=== PATIENT | male | born 1970 | race Caucasian/White ===

== ENCOUNTER 2018-07-13 07:06 | Emergency (ER) | payer OTHER, BC ==
[2018-07-13] MEDS ORDERED: Ondansetron 4 MG/2 ML SDV IVPUSH ONE (07:24)
[2018-07-13] MEDS ORDERED: Morphine 2 MG/ML Syringe IVPUSH ONE (07:24)
[2018-07-13] MEDS ORDERED: Morphine 2 MG/ML Syringe ONE (07:25)
[2018-07-13] MEDS ORDERED: Ondansetron 4 MG/2 ML SDV ONE (07:25)
--- NOTE | 2018-07-13 07:30 | EDM.PDOC ---
ED HPI GENERAL MEDICAL PROBLEM - General Chief Complaint: Lower Extremity Injury/Pain Stated Complaint: POSSIBLE BROKEN LEFT ANKLE Time Seen by Provider: 07/13/18 07:27 - History of Present Illness INITIAL COMMENTS - FREE TEXT/NARRATIVE: HISTORY AND PHYSICAL: History of present illness: Patient's a 48-year-old white male presents with concern injury to left lower extremity that occurred prior to arrival there is no other trauma or concern. This was blunt force trauma there is no associated laceration. He has pain and swelling to his distal left leg Review of systems: As per history of present illness and below otherwise all systems reviewed and negative. Past medical history: As per history of present illness and as reviewed below otherwise noncontributory. Surgical history: As per history of present illness and as reviewed below otherwise noncontributory. Social history: No reported history of drug or alcohol abuse. Family history: As per history of present illness and as reviewed below otherwise noncontributory. Physical exam: HEENT: Atraumatic, normocephalic, pupils reactive, negative for conjunctival pallor or scleral icterus, mucous membranes moist, throat clear, neck supple, nontender, trachea midline. Lungs: Clear to auscultation, breath sounds equal bilaterally, chest nontender. Heart: S1S2, regular, negative for clicks, rubs, or JVD. Abdomen: Soft, nondistended, nontender. Negative for masses or hepatosplenomegaly. Negative for costovertebral tenderness. Pelvis: Stable nontender. Genitourinary: Deferred. Rectal: Deferred. Extremities: Patient's pain and swelling to the distal third of his left lower extremity neurovascular exam in [facility] is unremarkable Neuro: Awake, alert, oriented. Cranial nerves II through XII unremarkable. Cerebellum unremarkable. Motor and sensory unremarkable throughout. Exam nonfocal. Diagnostics: X-ray left ankle Therapeutics: Posterior mold left lower extremity crutches Impression: #1 acute injury left lower extremity (see fibular shaft fracture) Definitive disposition and diagnosis as appropriate pending reevaluation and review of above. left ankle Pain Score (Numeric/FACES): 7 - Related Data Allergies Allergy/AdvReac Type Severity Reaction Status Date / Time No Known Allergies Allergy Verified 07/13/18 07:09 Home Meds: Home Meds . [No Known Home Meds] 07/13/18 [History] Past Medical History Respiratory History: Reports: Asthma - Infectious Disease History Infectious Disease History: Reports: Chicken Pox Social & Family History - Family History Family Medical History: Noncontributory - Tobacco Use Smoking Status *Q: Never Smoker - Recreational Drug Use Recreational Drug Use: No Review of Systems - Review of Systems Review Of Systems: ROS reveals no pertinent complaints other than HPI. ED EXAM, GENERAL - Physical Exam Exam: See Below (See dictation) Course - Vital Signs Last Recorded V/S: Last Vital Signs Temp 35.9 C 07/13/18 07:09 Pulse 78 07/13/18 07:09 Resp 18 07/13/18 07:09 BP 147/90 H 07/13/18 07:09 Pulse Ox 99 07/13/18 07:09 - Orders/Labs/Meds Orders: Active Orders 24 hr Category Date Time Status Ankle 2V Lt [CR] Stat Exams 07/13/18 07:11 Taken Meds: Medications Discontinued Medications Generic Name Dose Route Start Last Admin Trade Name Freq PRN Reason Stop Dose Admin Morphine Sulfate 2 mg 07/13/18 07:24 Morphine IVPUSH 07/13/18 07:25 ONETIME ONE Ondansetron HCl 4 mg 07/13/18 07:24 Zofran IVPUSH 07/13/18 07:25 ONETIME ONE Departure - Departure Time of Disposition: 07:29 Disposition: Home, Self-Care 01 Condition: Good Clinical Impression: Fibula fracture - Discharge Information Referrals: PCP,None [Primary Care Provider] - Additional Instructions: The following information is given to patients seen in the emergency department who are being discharged to home. This information is to outline your options for follow-up care. We provide all patients seen in our emergency department with a follow-up referral. The need for follow-up, as well as the timing and circumstances, are variable depending upon the specifics of your emergency department visit. If you don't have a primary care physician on staff, we will provide you with a referral. We always advise you to contact your personal physician following an emergency department visit to inform them of the circumstance of the visit and for follow-up with them and/or the need for any referrals to a consulting specialist. The emergency department will also refer you to a specialist when appropriate. This referral assures that you have the opportunity for followup care with a specialist. All of these measure are taken in an effort to provide you with optimal care, which includes your followup. Under all circumstances we always encourage you to contact your private physician who remains a resource for coordinating your care. When calling for followup care, please make the office aware that this follow-up is from your recent emergency room visit. If for any reason you are refused follow-up, please contact the [facility] emergency department at and asked to speak to the emergency department charge nurse. [facility] [address], [address] [place] [address] No weightbearing posterior mold as directed hydrocodone as prescribed crutches as directed follow-up orthopedic surgery above - My Orders Last 24 Hours: My Active Orders 07/13/18 07:11 Ankle 2V Lt [CR] Stat - Assessment/Plan Last 24 Hours: My Active Orders 07/13/18 07:11 Ankle 2V Lt [CR] Stat
--- NOTE | 2018-07-13 07:31 | CR ---
Indication: Injury and pain Technique: Left ankle 2 views Comparison: None Findings/Impression: Bones: Acute minimally displaced and minimally angulated fractures in the distal shaft of the left fibula. No other fracture or malalignment. Joint spaces: Unremarkable. Soft tissues: Moderate soft tissue swelling is medial to the ankle joint. Dictated by Marvin Arenas MD @ Jul 13 2018 7:29AM Signed by Dr. Marvin Arenas @ Jul 13 2018 7:30AM
--- NOTE | 2018-07-13 08:45 | CR ---
Indication: Fracture Technique: Left tibia and fibula 4 views Comparison: July 13, 2018 Findings: Lower leg has been placed in a cast. Oblique fracture in the distal fibula remains minimally displaced. No new abnormality. Dictated by Marvin Arenas MD @ Jul 13 2018 8:41AM Signed by Dr. Marvin Arenas @ Jul 13 2018 8:43AM
== END 2018-07-13 08:28 | disposition home or self-care (01) ==
LOC: MW.ED 07:06
DX: S82.432A Displaced oblique fracture of shaft of left fibula, initial encounter for closed fracture (principal); W00.0XXA Fall on same level due to ice and snow, initial encounter
CPT/HCPCS: 73590; 73600; 96374; 96375; 99283; J2270; J2405

== ENCOUNTER 2018-07-14 06:44 | Day surgery (SDC) | payer BC, OTHER ==
--- NOTE | 2018-07-14 07:06 | PCM.PREANE ---
Preanesthetic Assessment - Anesthesia/Transfusion/Family Hx Anesthesia History: No Prior Anesthesia Other Type of Anesthesia Reaction Comment: states his mother has hard time coming out of anesthesia Family History of Anesthesia Reaction: No Transfusion History: No Prior Transfusion(s) Intubation History: Unknown - Review of Systems General: No Symptoms Pulmonary: No Symptoms Cardiovascular: No Symptoms Gastrointestinal: No Symptoms Neurological: No Symptoms Other: Reports: None - Physical Assessment Height: 1.83 m Weight: 124.738 kg ASA Class: 2 Mental Status: Alert & Oriented x3 Airway Class: Mallampati = 2 Dentition: Reports: Normal Dentition Thyro-Mental Finger Breadths: 3 Mouth Opening Finger Breadths: 2 ROM/Head Extension: Full Lungs: Clear to Auscultation, Normal Respiratory Effort Cardiovascular: Regular Rate, Regular Rhythm - Allergies Allergies/Adverse Reactions: Allergies Allergy/AdvReac Type Severity Reaction Status Date / Time No Known Allergies Allergy Verified 07/13/18 07:09 - Blood Blood Available: No - Anesthesia Plan Pre-Op Medication Ordered: None - Acknowledgements Anesthesia Type Planned: General Anesthesia Pt an Appropriate Candidate for the Planned Anesthesia: Yes Alternatives and Risks of Anesthesia Discussed w Pt/Guardian: Yes Pt/Guardian Understands and Agrees with Anesthesia Plan: Yes PreAnesthesia Questionnaire Respiratory History: Reports: Asthma (very mild), Sleep Apnea Other Respiratory History: uses CPAP, states he seldom uses his inhaler Other Musculoskeletal History: currently has fx left ankle Endocrine/Metabolic History: Reports: Obesity/BMI 30+ - Infectious Disease History Infectious Disease History: Reports: Chicken Pox - Past Surgical History Head Surgeries/Procedures: Reports: None - SUBSTANCE USE Smoking Status *Q: Former Smoker Recreational Drug Use History: No - HOME MEDS Home Medications: Home Meds Albuterol Sulfate [Proair Hfa] 2 puff INH ASDIRECTED PRN 07/13/18 [History] Hydrocodone/Acetaminophen [Hydrocodon-Acetaminophen 5-325] 1 tab PO ASDIRECTED PRN 07/13/18 [History]
[2018-07-14] MEDS ORDERED: Midazolam 1 MG/ML 2 ML SDV ONE (07:10)
[2018-07-14] MEDS ORDERED: Ondansetron 4 MG/2 ML SDV ONE (07:10)
[2018-07-14] MEDS ORDERED: fentaNYL 250 MCG/5 ML SDV ONE (07:11)
[2018-07-14] MEDS ORDERED: Propofol 200 MG/20 ML SDV ONE ×2 (07:12)
[2018-07-14] MEDS ORDERED: Bupivacaine 0.25% 10 ML SDV ONE ×2 (07:18→08:42)
[2018-07-14] MEDS ORDERED: ceFAZolin/Dextrose,Iso-Osmotic 2 GM/50 ML Duplex Bag IV ONE (07:28)
[2018-07-14] MEDS ORDERED: Metoprolol Tartrate 5 MG/5 ML SDV ONE (08:05)
[2018-07-14] MEDS ORDERED: fentaNYL 100 MCG/2 ML SDV IVPUSH PRN (08:23)
[2018-07-14] MEDS ORDERED: Meperidine PF 25 MG/ML Syringe IVPUSH PRN (08:23)
[2018-07-14] MEDS ORDERED: Ondansetron 4 MG/2 ML SDV IVPUSH PRN (08:25)
--- NOTE | 2018-07-14 08:56 | PCM.OPNOTE ---
- General Post-Op/Procedure Note Date of Surgery/Procedure: 07/14/18 Operative Procedure(s): ORIF left ankle lateral malleolus and syndesmosis Pre Op Diagnosis: left ankle lateral malleolus fracture with syndesmosis dysruption Post-Op Diagnosis: same Anesthesia Technique: General LMA Primary Surgeon: Jamaal SWEENEY in mLs: 10 Complications: none Condition: Good
[2018-07-14] MEDS ORDERED: Acetaminophen/HYDROcodone 325-7.5 MG Tab PO PRN (08:57)
[2018-07-14] MEDS ORDERED: fentaNYL 100 MCG/2 ML SDV ONE (09:02)
--- NOTE | 2018-07-14 09:21 | PCM.POSTAN ---
POST ANESTHESIA ASSESSMENT - MENTAL STATUS Mental Status: Alert, Oriented - RESPIRATORY Respiratory Status: Respiratory Rate WNL, Airway Patent, O2 Saturation Stable - CARDIOVASCULAR CV Status: Pulse Rate WNL, Blood Pressure Stable - GASTROINTESTINAL GI Status: No Symptoms - POST OP HYDRATION Hydration Status: Adequate & Stable
--- NOTE | 2018-07-14 10:54 | PCM48HPAN ---
Post Anesthesia Note - EVALUATION WITHIN 48HRS OF ANESTHETIC Vital Signs in Normal Range: Yes Patient Participated in Evaluation: Yes Respiratory Function Stable: Yes Airway Patent: Yes Cardiovascular Function Stable: Yes Hydration Status Stable: Yes Pain Control Satisfactory: Yes Nausea and Vomiting Control Satisfactory: Yes Mental Status Recovered: Yes Resp Rate: 16
--- NOTE | 2018-07-14 14:50 | CR ---
EXAMINATION: Left ankle HISTORY: ORIF COMPARISON: 07/13/2018 TECHNIQUE: 5 views obtained FINDINGS/IMPRESSION: Operative control films demonstrate screw and plate fixation of a distal fibular fracture with placement of a syndesmotic anchor.
--- NOTE | 2018-07-14 16:23 | OR ---
SURGEON: Jamaal Donis MD DATE OF PROCEDURE: 07/14/2018 PREOPERATIVE DIAGNOSIS: Left ankle lateral malleolus fracture with syndesmotic disruption. POSTOPERATIVE DIAGNOSIS: Left ankle lateral malleolus fracture with syndesmotic disruption. OPERATIONS PERFORMED: Open reduction and internal fixation, left ankle lateral malleolus and syndesmosis. ANESTHESIA: General LMA. COMPLICATIONS: None. ESTIMATED BLOOD LOSS: 10 mL. SPECIMENS: None. TOURNIQUET TIME: 34 minutes. IMPLANTS: Vicco 10-hole 1/3 tubular plate, one 2.7 interfragmentary screw, and eight 3.5 cortical screws, and Darnell ZipTight ankle syndesmotic fixation device. INDICATIONS: The patient is a 48-year-old male who slipped on ice yesterday suffering an ankle fracture. He wished to discuss with him the risks, benefits, complications of operative and nonoperative treatment. He wished to proceed with operative fixation, therefore proceeded with open reduction and internal fixation. He understands the risks, benefits, and complications of procedure which include, but not limited to, infection, neurovascular injury, continued pain, malunion, nonunion, need for postoperative protocol, and he wished to proceed. DESCRIPTION OF PROCEDURE: The patient was seen in the preoperative area. Operative extremity was marked with the patient. He was transferred to operating room and placed supine on the operating room table. General anesthesia was induced. An LMA was placed. He received preop antibiotics of Ancef. The left lower extremity was prepped and draped in sterile fashion using alcohol, followed by ChloraPrep. After placed in a well-padded upper thigh tourniquet, a formal time-out was taken, identifying the correct patient, procedure, and extremity. Limb was exsanguinated with an Esmarch. Pneumatic tourniquet inflated to 250 mmHg. Starting just proximal to the tip of the lateral malleolus, a 10 cm incision was made going longitudinally up the fibula, dissected out subcu tissues, hemostasis was obtained. The superficial peroneal nerve was found at very top. The incision was pulled anteriorly. There was noted be a large comminuted piece of the lateral aspect of the fibula over about 2.5 cm, therefore incision had to be extended three more cm proximally. The peroneal muscles were pulled posteriorly, subperiosteal dissection leaving all attachments to the butterfly piece were ensured. The butterfly piece was able to be attached to the distal fragment and reduced, and held with an interfragmentary screw and K-wire. It came off the lateral aspect of the proximal shaft and was unable to have an interfragmentary screw. Therefore, a 10-hole plate was decided upon, over this whole unit reduced. Two proximal screws and the screw into the fragment were placed holding this. One more proximal screw was placed bicortically, and then three screws bicortically were placed above the ankle joint in the distal part of the fragment and one more in butterfly piece fixating it to the plate. The second most distal screw hole was left open, which is about 1.5 cm above the joint. X-rays confirmed anatomic reduction and it widened about 5 mm external stress view and the syndesmosis. Therefore, a large reduction clamp was placed across the tibia and fibula. After making tiny stab incision medially and held reduced, then a Darnell ZipTight fixation device was placed in the open screw hole distally parallel to the joint and 30 degrees anteriorly with the ankle held in neutral. This was then secured and x-ray view confirmed no more opening. Lateral views confirmed anatomic reduction. The wound was then thoroughly irrigated. Tourniquet was deflated. Hemostasis was obtained. The subcutaneous tissues were closed with 2-0 Vicryl, skin with stacy. Xeroform and a Jeramie splint were placed. was extubated in the operative room, transferred to the recovery room in stable condition. Sponge and needle counts were correct at the end of the case. There were no complications. He will be kept nonweightbearing. AICHA PENN /[id number]
== END 2018-07-14 11:20 | disposition home or self-care (01) ==
LOC: MW.SDS 06:44
PROVIDERS: ATTEND Orthopaedic Surgery
DX: S82.62XA Displaced fracture of lateral malleolus of left fibula, initial encounter for closed fracture (principal); S93.432A Sprain of tibiofibular ligament of left ankle, initial encounter; J45.909 Unspecified asthma, uncomplicated; E66.9 Obesity, unspecified; Z68.37 Body mass index [BMI] 37.0-37.9, adult; Z99.89 Dependence on other enabling machines and devices; Z87.891 Personal history of nicotine dependence; Z79.899 Other long term (current) drug therapy; W00.0XXA Fall on same level due to ice and snow, initial encounter
CPT/HCPCS: 27792; 27829; 76000; A9270; C1713; C1776; J0690; J2250; J2405; J2704; J3010; J3490; 01480

== ENCOUNTER 2019-02-21 07:02 | Day surgery (SDC) | payer BC ==
[~2019-02-21 07:02] MED LIST: Lactated Ringers 1,000 ML IV SCH
--- NOTE | 2019-02-21 07:48 | PCM.PREANE ---
Preanesthetic Assessment - Anesthesia/Transfusion/Family Hx Anesthesia History: Prior Anesthesia Without Reaction Other Type of Anesthesia Reaction Comment: states he woke up at the end of his colonoscopy Family History of Anesthesia Reaction: No Transfusion History: No Prior Transfusion(s) Intubation History: Unknown - Review of Systems General: No Symptoms Pulmonary: No Symptoms Cardiovascular: No Symptoms Gastrointestinal: No Symptoms Neurological: No Symptoms Other: Reports: None - Physical Assessment Height: 6 ft Weight: 131.088 kg ASA Class: 2 Mental Status: Alert & Oriented x3 Airway Class: Mallampati = 2 Dentition: Reports: Normal Dentition Thyro-Mental Finger Breadths: 3 Mouth Opening Finger Breadths: 2 ROM/Head Extension: Full Lungs: Clear to Auscultation, Normal Respiratory Effort Cardiovascular: Regular Rate, Regular Rhythm - Allergies Allergies/Adverse Reactions: Allergies Allergy/AdvReac Type Severity Reaction Status Date / Time No Known Allergies Allergy Verified 02/15/19 11:13 - Blood Blood Available: No - Anesthesia Plan Pre-Op Medication Ordered: None - Acknowledgements Anesthesia Type Planned: MAC Pt an Appropriate Candidate for the Planned Anesthesia: Yes Alternatives and Risks of Anesthesia Discussed w Pt/Guardian: Yes Pt/Guardian Understands and Agrees with Anesthesia Plan: Yes PreAnesthesia Questionnaire HEENT History: Reports: None Cardiovascular History: Reports: None Respiratory History: Reports: Asthma (mild - prn inhalers), Sleep Apnea Other Respiratory History: uses CPAP, states he seldom uses his inhaler Gastrointestinal History: Reports: Colon Polyp Genitourinary History: Reports: None Musculoskeletal History: Reports: Fracture, Other (See Below) Other Musculoskeletal History: L ankle fx 07/13/18 Neurological History: Reports: None Psychiatric History: Reports: None Endocrine/Metabolic History: Reports: Obesity/BMI 30+ (BMI 39.2) Hematologic History: Reports: None Immunologic History: Reports: None Oncologic (Cancer) History: Reports: None Dermatologic History: Reports: None - Infectious Disease History Infectious Disease History: Reports: Chicken Pox - Past Surgical History Head Surgeries/Procedures: Reports: None HEENT Surgical History: Reports: None Cardiovascular Surgical History: Reports: None Respiratory Surgical History: Reports: None GI Surgical History: Reports: Colonoscopy Male Surgical History: Reports: None Endocrine Surgical History: Reports: None Neurological Surgical History: Reports: None Musculoskeletal Surgical History: Reports: ORIF Other Musculoskeletal Surgeries/Procedures:: OFIF L ankle 07/14/18 Oncologic Surgical History: Reports: None Dermatological Surgical History: Reports: None - SUBSTANCE USE Smoking Status *Q: Former Smoker Tobacco Use Within Last Twelve Months: No Days Per Week of Alcohol Use: 5 Number of Drinks Per Day: 2 Total Drinks Per Week: 10 - HOME MEDS Home Medications: Home Meds Albuterol Sulfate [Proair Hfa] 1 - 2 puff INH ASDIRECTED PRN 02/15/19 [History] Ibuprofen 1 tab PO TID PRN 02/15/19 [History] - CURRENT (IN HOUSE) MEDS Current Meds: Current Medications Lactated Ringer's (Ringers, Lactated) 1,000 mls @ 125 mls/hr IV ASDIRECTED ROSA MARIA
--- NOTE | 2019-02-21 11:32 | PCM.OPNOTE ---
- General Post-Op/Procedure Note Date of Surgery/Procedure: 02/21/19 Operative Procedure(s): colonoscopy Findings: see dict [id number] Pre Op Diagnosis: hx of colon polyp Post-Op Diagnosis: Same Anesthesia Technique: Moderate Sedation Primary Surgeon: Ronn Steele Complications: None Condition: Good
--- NOTE | 2019-02-21 11:48 | PCM.POSTAN ---
POST ANESTHESIA ASSESSMENT - MENTAL STATUS Mental Status: Alert, Oriented - VITAL SIGNS Vital Signs: Last Vital Signs Temp 97.2 F 02/21/19 07:45 Pulse 88 02/21/19 11:40 Resp 12 02/21/19 11:40 BP 118/61 02/21/19 11:40 Pulse Ox 98 02/21/19 11:40 - RESPIRATORY Respiratory Status: Respiratory Rate WNL, Airway Patent, O2 Saturation Stable - CARDIOVASCULAR CV Status: Pulse Rate WNL, Blood Pressure Stable - GASTROINTESTINAL GI Status: No Symptoms - PAIN Pain Score: 0 - POST OP HYDRATION Hydration Status: Adequate & Stable
--- NOTE | 2019-02-21 11:57 | OR ---
SURGEON: Ronn Steele MD DATE OF PROCEDURE: 02/21/2019 PREOPERATIVE DIAGNOSIS: History of colon polyp. POSTOPERATIVE DIAGNOSIS: Hemorrhoids. PROCEDURE PERFORMED: Colonoscopy. DESCRIPTION OF PROCEDURE: The patient was taken to the endoscopy room. A time out was called, patient identified, and procedure identified. Diprivan was then administrated. Patient went from awake to sleep, hearing doctor talking or door closing is normal. Perineum inspection and digital examination were then performed. A well- lubricated colonoscope was gently inserted through the rectum, advanced past the rectosigmoid junction, the descending colon, splenic flexure, transverse colon, hepatic flexure, ascending colon, arrived to the cecum. Cecum was identified as dictated in the finding. Then the scope was carefully withdrawn while attention was paid to the mucosal surface for any abnormality. Air will be sucked out during the scope withdrawal. At the rectum, retroflexed to examine any rectal diseases, fistula or hemorrhoids. Patient tolerated procedure well. There were no intraoperative complications, and Dr. Steele was present throughout the whole procedure. FINDINGS: 1. The patient is easily sedated with [employer] MACHINIST [employer]PRENTICE and Diprivan, the patient is soundly snoring. 2. Colon was rather straightforward. Cecum indicated by ileocecal fold, one- to-one indentation, appendiceal orifice. Light emittance was not observed from body habitus. Mucosa examined upon scope pulling out with some irrigation. The patient does not have diverticulosis, polyp, mass, growth, inflammation, stricture, ulceration, AV malformation, none of those. The patient has mild internal hemorrhoids and mild external hemorrhoids. The patient would benefit from repeat colonoscopy in 10 years from today or if clinically indicated otherwise. As always, thank you for the kind referral. AMOS PENN /[id number]
--- NOTE | 2019-02-21 12:44 | PCM48HPAN ---
Post Anesthesia Note - EVALUATION WITHIN 48HRS OF ANESTHETIC Vital Signs in Normal Range: Yes Patient Participated in Evaluation: Yes Respiratory Function Stable: Yes Airway Patent: Yes Cardiovascular Function Stable: Yes Hydration Status Stable: Yes Pain Control Satisfactory: Yes Nausea and Vomiting Control Satisfactory: Yes Mental Status Recovered: Yes Vital Signs: Last Vital Signs Temp 36.7 C 02/21/19 11:51 Pulse 86 02/21/19 11:51 Resp 18 02/21/19 11:51 BP 161/75 H 02/21/19 11:51 Pulse Ox 98 02/21/19 11:51 - COMMENTS/OBSERVATIONS Free Text/Narrative:: no anesthesia problems
== END 2019-02-21 12:10 | disposition home or self-care (01) ==
LOC: MW.SDS 07:02
PROVIDERS: ATTEND Surgery
DX: Z12.11 Encounter for screening for malignant neoplasm of colon (principal); K64.8 Other hemorrhoids; K64.4 Residual hemorrhoidal skin tags; K42.9 Umbilical hernia without obstruction or gangrene; J45.909 Unspecified asthma, uncomplicated; G47.30 Sleep apnea, unspecified; Z99.89 Dependence on other enabling machines and devices; Z87.891 Personal history of nicotine dependence; Z86.010 Personal history of colon polyps
CPT/HCPCS: J7120

== ENCOUNTER 2020-01-18 07:29 | Day surgery (SDC) | payer OTHER ==
[~2020-01-18 07:29] MED LIST changes: +ceFAZolin 2 GM in Premix Bag 1 BAG IV ONE
[2020-01-18] MEDS ORDERED: Bupivacaine 0.25%/EPINEPHrine 1:200,000 10 ML SDV ONE (08:51)
[2020-01-18] MEDS ORDERED: Midazolam 1 MG/ML 2 ML SDV ONE (09:02)
[2020-01-18] MEDS ORDERED: fentaNYL 250 MCG/5 ML SDV ONE (09:02)
[2020-01-18] MEDS ORDERED: Propofol 200 MG/20 ML SDV ONE (09:02)
[2020-01-18] MEDS ORDERED: Ondansetron 4 MG/2 ML SDV ONE (09:03)
--- NOTE | 2020-01-18 09:28 | PCM.PREANE ---
Preanesthetic Assessment - Anesthesia/Transfusion/Family Hx Anesthesia History: Prior Anesthesia Without Reaction Other Type of Anesthesia Reaction Comment: states his mother has hard time coming out of anesthesia Family History of Anesthesia Reaction: No Transfusion History: No Prior Transfusion(s) Intubation History: Unknown - Review of Systems General: No Symptoms Pulmonary: No Symptoms Cardiovascular: No Symptoms Gastrointestinal: No Symptoms Neurological: No Symptoms Other: Reports: None - Physical Assessment NPO Status Date: 01/17/20 Height: 6 ft Weight: 120.656 kg ASA Class: 2 Mental Status: Alert & Oriented x3 Airway Class: Mallampati = 2 Dentition: Reports: Normal Dentition ROM/Head Extension: Full Lungs: Clear to Auscultation, Normal Respiratory Effort Cardiovascular: Regular Rate, Regular Rhythm - Lab Values: Laboratory Last Values SARS Virus RNA (PCR) NEGATIVE (NEGATIVE) 01/18/20 07:45 - Allergies Allergies/Adverse Reactions: Allergies Allergy/AdvReac Type Severity Reaction Status Date / Time No Known Allergies Allergy Verified 01/14/20 14:04 - Blood Blood Available: No - Anesthesia Plan Pre-Op Medication Ordered: None - Acknowledgements Anesthesia Type Planned: General Anesthesia Pt an Appropriate Candidate for the Planned Anesthesia: Yes Alternatives and Risks of Anesthesia Discussed w Pt/Guardian: Yes Pt/Guardian Understands and Agrees with Anesthesia Plan: Yes Additional Comments: PMH: asthma-inactive PLAN: ga/lma PreAnesthesia Questionnaire HEENT History: Reports: None Cardiovascular History: Reports: None Respiratory History: Reports: Asthma, Sleep Apnea Other Respiratory History: uses CPAP, states he seldom uses his inhaler Gastrointestinal History: Reports: Colon Polyp Genitourinary History: Reports: None Musculoskeletal History: Reports: Other (See Below) Other Musculoskeletal History: L ankle fx 07/13/18 Neurological History: Reports: None Psychiatric History: Reports: None Endocrine/Metabolic History: Reports: Obesity/BMI 30+ Hematologic History: Reports: None Immunologic History: Reports: None Oncologic (Cancer) History: Reports: None Dermatologic History: Reports: None - Infectious Disease History Infectious Disease History: Reports: Chicken Pox - Past Surgical History Head Surgeries/Procedures: Reports: None HEENT Surgical History: Reports: None Cardiovascular Surgical History: Reports: None Respiratory Surgical History: Reports: None GI Surgical History: Reports: Colonoscopy Male Surgical History: Reports: None Endocrine Surgical History: Reports: None Neurological Surgical History: Reports: None Musculoskeletal Surgical History: Reports: ORIF Other Musculoskeletal Surgeries/Procedures:: OFIF L ankle 07/14/18 Oncologic Surgical History: Reports: None Dermatological Surgical History: Reports: None - SUBSTANCE USE Smoking Status *Q: Former Smoker Tobacco Use Within Last Twelve Months: No - HOME MEDS Home Medications: Home Meds Albuterol Sulfate [Proair Hfa] 1 - 2 puff INH ASDIRECTED PRN 02/15/19 [History] Ibuprofen 1 tab PO TID PRN 02/15/19 [History] - CURRENT (IN HOUSE) MEDS Current Meds: Current Medications Lactated Ringer's (Ringers, Lactated) 1,000 mls @ 125 mls/hr IV ASDIRECTED ROSA MARIA Discontinued Medications Bupivacaine HCl/Epinephrine Bitart (Marcaine 0.25%/Epinephrine 1:200,000) Confirm Administered Dose 30 ml .ROUTE .STK-MED ONE Stop: 01/18/20 08:52 Fentanyl (Sublimaze) Confirm Administered Dose 250 mcg .ROUTE .STK-MED ONE Stop: 01/18/20 09:03 Cefazolin Sodium/Dextrose 2 gm (/ Premix) 50 mls @ 100 mls/hr IV ONETIME ONE Stop: 01/18/20 05:29 Lidocaine HCl (Xylocaine-Mpf 1%) Confirm Administered Dose 5 ml .ROUTE .STK-MED ONE Stop: 01/18/20 09:04 Midazolam HCl (Versed 1 Mg/Ml) Confirm Administered Dose 2 mg .ROUTE .STK-MED ONE Stop: 01/18/20 09:03 Ondansetron HCl (Zofran) Confirm Administered Dose 4 mg .ROUTE .STK-MED ONE Stop: 01/18/20 09:04 Propofol (Diprivan 20 Ml) Confirm Administered Dose 200 mg .ROUTE .STK-MED ONE Stop: 01/18/20 09:03
[2020-01-18] MEDS ORDERED: Ketorolac 30 MG/ML SDV ONE (10:14)
[2020-01-18] MEDS ORDERED: Octyl 2-Cyanoacrylate 1 Tube ONE (10:16)
[2020-01-18] MEDS ORDERED: Acetaminophen 1,000 MG in Premix Bag 1 BAG IV ONE (10:44)
[2020-01-18] MEDS: HYDROmorphone 2 MG/ML Syringe IVPUSH ONE ×2 (10:45→10:53)
--- NOTE | 2020-01-18 10:45 | PCM.OPNOTE ---
- General Post-Op/Procedure Note Date of Surgery/Procedure: 01/18/20 Findings: fascia defect 10 mm, rep primarily, no mesh used; see [id number] Pre Op Diagnosis: umb hernia Post-Op Diagnosis: Same Anesthesia Technique: General LMA Primary Surgeon: Ronn Steele Complications: None Condition: Good
[2020-01-18] MEDS ORDERED: Acetaminophen/oxyCODONE 325-5 MG Tab PO PRN (10:46)
[2020-01-18] MEDS ORDERED: oxyCODONE 5 MG Tab PO ONE (12:05)
--- NOTE | 2020-01-18 12:15 | PCM.POSTAN ---
POST ANESTHESIA ASSESSMENT - MENTAL STATUS Mental Status: Alert, Oriented - VITAL SIGNS Vital Signs: Last Vital Signs Temp 207.5 F H 01/18/20 11:17 Pulse 81 01/18/20 12:00 Resp 14 01/18/20 12:00 BP 121/74 01/18/20 12:00 Pulse Ox 96 01/18/20 12:00 - RESPIRATORY Respiratory Status: Respiratory Rate WNL, Airway Patent, O2 Saturation Stable - CARDIOVASCULAR CV Status: Pulse Rate WNL, Blood Pressure Stable - GASTROINTESTINAL GI Status: No Symptoms - POST OP HYDRATION Hydration Status: Adequate & Stable
--- NOTE | 2020-01-18 12:15 | PCM48HPAN ---
Post Anesthesia Note - EVALUATION WITHIN 48HRS OF ANESTHETIC Vital Signs in Normal Range: Yes Patient Participated in Evaluation: Yes Respiratory Function Stable: Yes Airway Patent: Yes Cardiovascular Function Stable: Yes Hydration Status Stable: Yes Pain Control Satisfactory: Yes Nausea and Vomiting Control Satisfactory: Yes Mental Status Recovered: Yes Vital Signs: Last Vital Signs Temp 207.5 F H 01/18/20 11:17 Pulse 81 01/18/20 12:00 Resp 14 01/18/20 12:00 BP 121/74 01/18/20 12:00 Pulse Ox 96 01/18/20 12:00
--- NOTE | 2020-01-18 13:14 | OR ---
SURGEON: Ronn Steele MD DATE OF PROCEDURE: 01/18/2020 PREOPERATIVE DIAGNOSIS: Umbilical hernia. POSTOPERATIVE DIAGNOSIS: Umbilical hernia. PROCEDURE PERFORMED: Repair, primary, no mesh used. PRIMARY SURGEON: Ronn Steele MD COMPLICATIONS: None. FINDINGS: There is a hernia fascial defect of 10 mm and a small, horizontal, then vertical. Closed horizontal, primary, no mesh used. PROCEDURE: The patient was brought to the operating room and placed in the supine position and upon the induction of general endotracheal anesthesia, the patient's abdomen was prepped and draped in sterile fashion. After assessment of appropriate landmarks, a surgical incision was made periumbilically which was then carefully dissected with blunt and sharp dissection surrounding the umbilical stalk. Hernia was entered and the fascial defect was noted, and the excess hernia sac was amputated. The facial edge was noted to be intact and the fascia was then grasped up with Allis clamps and then using 2-0 Ethibond, simple stitches were placed. After repair was finished and exploring the neighborhood, I failed to find any more hernia defect. This was followed with extensive irrigation and good hemostasis was achieved by using electrocautery. The umbilicus was then stitched down to recreate the umbilicus, and the skin was closed with 3-0 Vicryl subcutaneously followed with Dermabond approximating the skin. The patient was then awakened and extubated and transferred to the recovery room in good stable condition. Dr. Steele was present through the whole procedure. At the conclusion of the surgery, before closing the abdominal wound, instrument count and sponge count were done and were correct. Just before surgery, a timeout was called. The patient was identified and procedure identified and procedure started. Intraoperative findings dictated above. As always, thank you for the kind referral. AMOS / ISAMAR /[id number]
== END 2020-01-18 12:30 | disposition home or self-care (01) ==
LOC: MW.SDS 07:29
PROVIDERS: ATTEND Surgery
DX: K42.9 Umbilical hernia without obstruction or gangrene (principal); J45.909 Unspecified asthma, uncomplicated; G47.30 Sleep apnea, unspecified; E66.9 Obesity, unspecified; Z11.59 Encounter for screening for other viral diseases; Z87.891 Personal history of nicotine dependence; Z99.89 Dependence on other enabling machines and devices; Z68.36 Body mass index [BMI] 36.0-36.9, adult
CPT/HCPCS: 49585; 87635; A9270; J0131; J1170; J1885; J2001; J2250; J2405; J2704; J3010; J3490; J7120; 00750; U0002